=== PATIENT | male | born 1955 | race African-American/Black ===

== ENCOUNTER 2024-01-17 17:46 | Emergency (ER) | payer OTHER ==
[2024-01-17 17:58] VITALS: BP 155/90; PULSE 85; RESP 18; TEMP 99.1; BMI 24.4
[2024-01-17] MEDS ORDERED: ACETAMINOPHEN 500 MG TABLET (FP) ONE (18:34)
[2024-01-17] MEDS ORDERED: IBUPROFEN 600 MG TABLET (FP) PO ONE (18:34)
[2024-01-17] MEDS: IBUPROFEN 600 MG TABLET (FP) PO ONE (19:02)
[2024-01-17] MEDS: ACETAMINOPHEN 500 MG TABLET (FP) PO ONE (19:02)
[2024-01-18 16:28] LABS: HIV INTERPRETATION NEGATIVE (NEGATIVE)
== END 2024-01-17 19:42 | disposition home or self-care (01) ==
LOC: JER 17:46
DX: S00.501A Unspecified superficial injury of lip, initial encounter (principal); W01.0XXA Fall on same level from slipping, tripping and stumbling without subsequent striking against object, initial encounter
CPT/HCPCS: 36415; 86803; 87389; 99283-25

== ENCOUNTER 2024-01-24 15:23 | Emergency (ER) | payer OTHER ==
[2024-01-24 15:32] VITALS: BP 160/82; PULSE 99; RESP 18; TEMP 98.2; BMI 24.7
[2024-01-24] MEDS ORDERED: ACETAMINOPHEN 325 MG TABLET (FP) ONE (16:23)
[2024-01-24] MEDS: ACETAMINOPHEN 500 MG TABLET (FP) PO ONE (16:26)
[2024-01-24] MEDS: MAG HYDROX/ALH/SMC/DPHA/LIDO 240 ML MOUTHWASH MM ONE (16:55)
== END 2024-01-24 19:26 | disposition home or self-care (01) ==
LOC: JER 15:23
DX: R51.9 Headache, unspecified (principal); M54.2 Cervicalgia; K13.0 Diseases of lips; G89.29 Other chronic pain; W01.0XXD Fall on same level from slipping, tripping and stumbling without subsequent striking against object, subsequent encounter
CPT/HCPCS: 70450-TC; 99284-25